=== PATIENT | female | born 1950 | race American Indian/Alaskan Native ===

== ENCOUNTER 2017-07-05 06:24 | Day surgery (SDC) | payer MEDICARE ==
[2017-07-05 06:55] VITALS: BMI 32.9
[2017-07-05 07:19] VITALS: O2SAT 100
[2017-07-05] MEDS ORDERED: Lactated Ringer's 1,000 ML IV ONE (07:49)
--- NOTE | 2017-07-05 07:59 | CP.SDSHP ---
Same Day Surgery H & P - History Proposed Procedure: colonoscopy Pre-Op Diagnosis: screening for colon cancer - Previous Medical/Surgical History Cardiac: Hypertension Endocrine/Metabolic: Obesity Previous Surgical History: tubal ligation - Allergies Allergies: Allergies No Known Allergies Allergy (Verified 07/05/17 06:54) - Physical Exam Vital Signs: Vital Signs 07/05/17 06:57 Temperature 97.8 F Pulse Rate 77 Respiratory 19 Rate Blood Pressure 160/81 H O2 Sat by Pulse 100 Oximetry Mental Status: Alert & Oriented x3 Neuro: WNL Heart: WNL Lungs: WNL GI: WNL - Impression Impression: screening for colon cancer Pt. Evaluated Today:Candidate for Anesthesia & Procedure: Yes - Date & Time Date: 07/05/17 Time: 07:59 Short Stay Discharge - Short Stay Discharge Admitting Diagnosis/Reason for Visit: ENCOUNTER FOR SCREENING Disposition: HOME/ ROUTINE
[2017-07-05] MEDS ORDERED: Propofol 10 mg/ml Inj (20 ML) ONE (08:05)
[2017-07-05 08:43] VITALS: TEMP 97.3
[2017-07-05 09:14] VITALS: RESP 12
[2017-07-05 09:19] VITALS: BP 120/71; PULSE 70
== END 2017-07-05 10:00 | disposition home or self-care (01) ==
LOC: C.ENDO 06:24
PROVIDERS: ATTEND Internal Medicine Gastroenterology
DX: K64.1 Second degree hemorrhoids (principal)
CPT/HCPCS: 45378; J2704; J7120